=== PATIENT | female | born 1990 | race Caucasian/White ===

== ENCOUNTER 2021-05-08 16:38 | Observation (INO) | payer SELFPAY ==
[2021-05-08] MEDS ORDERED: HYDROmorphone 0.5 MG/0.5 ML Syringe IVPUSH ONE ×2 (17:20→19:16)
--- NOTE | 2021-05-08 17:25 | EDM.PDOC ---
<Keyur Lee - Last Filed: 05/08/21 19:08> ED HPI GENERAL MEDICAL PROBLEM - General Chief Complaint: Abdominal Pain Stated Complaint: [facility] Time Seen by Provider: 05/08/21 17:05 Source of Information: Reports: Patient, EMS, Family History Limitations: Reports: No Limitations - History of Present Illness INITIAL COMMENTS - FREE TEXT/NARRATIVE: 31-year-old female usually healthy, has had some intermittent right-sided pain over the past several months but today it started fairly suddenly and intensely at around 11:00 this morning. It has waxed and waned all day but not gone away and this afternoon it became very intense with nausea and vomiting. Her was bringing her in to be seen and it got so bad they had to call the ambulance to finish the trip. EMS started IV, gave her IV fentanyl and Zofran and she feels somewhat better but it starting to build up again. She points to her right lateral side and right lower chest and abdomen as the source of the pain. She is appearing vacation and for the past 3 days before the pain started she has been fine. No abdominal surgical history. She just finished her menstrual cycle. Onset: Sudden Duration: Hour(s): (5 hours) Location: Reports: Chest, Abdomen Improves with: Reports: Medication (EMS medications did help) Associated Symptoms: Reports: Malaise, Nausea/Vomiting. 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: Psychiatric History: Reports: Anxiety, Panic Attack Endocrine/Metabolic History: Reports: Obesity/BMI 30+ - Past Surgical History Head Surgeries/Procedures: Reports: None HEENT Surgical History: Reports: None Endocrine Surgical History: Reports: None Dermatological Surgical History: Reports: None Social & Family History - Tobacco Use Tobacco Use Status *Q: Never Tobacco User Second Hand Smoke Exposure: No - Caffeine Use Caffeine Use: Reports: Coffee, Soda - Recreational Drug Use Recreational Drug Use: No ED ROS GENERAL - Review of Systems Review Of Systems: See Below Constitutional: Reports: Malaise. Denies: Fever, Chills HEENT: Reports: Other (No jaundice). Denies: Vision Change Respiratory: Reports: No Symptoms. Denies: Shortness of Breath Cardiovascular: Reports: Chest Pain (Pain is localized to the lower right anterior and lateral chest) GI/Abdominal: Reports: Abdominal Pain (Right upper quadrant), Nausea, Vomiting : Reports: Flank Pain (Right side) Musculoskeletal: Reports: No Symptoms Skin: Reports: No Symptoms Neurological: Reports: No Symptoms Psychiatric: Reports: No Symptoms ED EXAM, GI/ABD - Physical Exam Exam: See Below Exam Limited By: No Limitations General Appearance: Alert, Mild Distress (Still fairly uncomfortable despite EMS medications but much improved) Eyes: Bilateral: Normal Appearance Head: Atraumatic Respiratory/Chest: No Respiratory Distress Cardiovascular: Regular Rate, Rhythm, Other (She thinks her chest wall is tender right lateral and anterior) GI/Abdominal Exam: Normal Bowel Sounds, Soft, Tender (Just minimal discomfort to palpation in the right abdomen, no focal guarding or rebound) Neurological: Alert, Oriented Psychiatric: Normal Affect, Normal Mood Skin Exam: Warm, Dry. No: Rash (No rash over the painful area) Course - Re-Assessments/Exams Free Text/Narrative Re-Assessment/Exam: 05/08/21 17:24 This presents more like a kidney stone and gallbladder disease, but his CMP CBC and lipase were ordered. She was given additional 0.5 mg of IV Dilaudid and a CT of the abdomen and pelvis will be obtained without contrast. 05/08/21 19:07 Lipase was normal, AST and ALT was slightly elevated but alk phos was normal. White count was elevated at 14,300. 05/08/21 19:08 Impression: 1. Gallbladder distention without appreciable wall thickening or surrounding edema. Consider follow-up ultrasound. 2. Small hiatal hernia. 3. Normal appendix. No nephrolithiasis. Ultrasound will be ordered and care will be turned over to Dr. Powers pending results. Departure - Departure Disposition: Refer to Observation Clinical Impression: Abdominal pain Qualifiers: Abdominal location: right upper quadrant Qualified Code(s): R10.11 - Right upper quadrant pain - Discharge Information Referrals: PCP,None [Primary Care Provider] - Forms: ED Department Discharge Sepsis Event Note (ED) - Evaluation Sepsis Screening Result: No Definite Risk <Jamar Powers - Last Filed: 05/08/21 21:04> Course - Vital Signs Last Recorded V/S: Last Vital Signs Temp 95.4 F L 05/08/21 16:47 Pulse 79 05/08/21 20:56 Resp 12 05/08/21 16:47 BP 116/69 05/08/21 20:56 Pulse Ox 98 05/08/21 20:56 - Orders/Labs/Meds Orders: Active Orders 24 hr Category Date Time Status Abdomen Ltd [US] Stat Exams 05/08/21 19:08 Taken Abdomen Pelvis wo Cont [CT] Stat Exams 05/08/21 17:20 Taken LACTIC ACID [CHEM] Stat Lab 05/08/21 20:52 Ordered Labs: Laboratory Tests 05/08/21 05/08/21 Range/Units 17:53 17:53 WBC 14.3 H (4.5-11.0) K/uL RBC 4.44 (3.30-5.50) M/uL Hgb 13.3 (12.0-15.0) g/dL Hct 39.0 (36.0-48.0) % MCV 88 (80-98) fL MCH 30 (27-31) pg MCHC 34 (32-36) % Plt Count 282 (150-400) K/uL Neut % (Auto) 91.9 H (36-66) % Lymph % (Auto) 4.1 L (24-44) % [place] % (Auto) 3.6 (2-6) % Eos % (Auto) 0.2 L (2-4) % Baso % (Auto) 0.2 (0-1) % Sodium 142 (140-148) mmol/L Potassium 3.5 L (3.6-5.2) mmol/L Chloride 103 (100-108) mmol/L Carbon Dioxide 24 (21-32) mmol/L Anion Gap 18.5 H (5.0-14.0) mmol/L BUN 12 (7-18) mg/dL Creatinine 1.2 H (0.6-1.0) mg/dL Est Cr Clr Drug Dosing 52.74 mL/min Estimated GFR (MDRD) 52 L (>60) Glucose 132 H (74-106) mg/dL Calcium 8.6 (8.5-10.1) mg/dL Total Bilirubin 0.3 (0.2-1.0) mg/dL AST 38 H (15-37) U/L ALT 84 H (12-78) U/L Alkaline Phosphatase 50 (46-116) U/L Total Protein 7.1 (6.4-8.2) g/dL Albumin 3.5 (3.4-5.0) g/dL Globulin 3.6 H (2.3-3.5) g/dL Albumin/Globulin Ratio 1.0 L (1.2-2.2) Lipase 78 (73-393) U/L Meds: Medications Discontinued Medications Generic Name Dose Route Start Last Admin Trade Name Freq PRN Reason Stop Dose Admin Fentanyl 100 mcg 05/08/21 20:51 Fentanyl 100 Mcg/2 Ml Sdv IVPUSH 05/08/21 20:52 ONETIME ONE Hydromorphone HCl 0.5 mg 05/08/21 17:20 05/08/21 17:24 Hydromorphone 0.5 Mg/0.5 Ml Syringe IVPUSH 05/08/21 17:21 0.5 mg ONETIME ONE Administration Hydromorphone HCl 0.5 mg 05/08/21 19:16 05/08/21 19:27 Hydromorphone 0.5 Mg/0.5 Ml Syringe IVPUSH 05/08/21 19:17 0.5 mg ONETIME ONE Administration Ondansetron HCl 4 mg 05/08/21 19:22 05/08/21 19:27 Ondansetron 4 Mg/2 Ml Sdv IVPUSH 05/08/21 19:23 4 mg ONETIME ONE Administration Departure - Departure Time of Disposition: 21:04 Sepsis Event Note (ED) - Focused Exam Vital Signs: Vital Signs Temp Pulse Resp BP Pulse Ox 05/08/21 20:56 79 116/69 98 05/08/21 17:48 63 111/63 05/08/21 16:47 95.4 F L 77 12 91/50 L 100 05/08/21 16:43 95.4 F L 77 12 91/50 L 100 - My Orders Last 24 Hours: My Active Orders 05/08/21 20:52 LACTIC ACID [CHEM] Stat - Assessment/Plan Last 24 Hours: My Active Orders 05/08/21 20:52 LACTIC ACID [CHEM] Stat Plan: Took over care from Dr. Kobringer at shift change pending results of CT scan and ultrasound Assessment Acuity = acute Site and laterality = right upper quadrant abdominal pain Etiology = probable cholecystitis Manifestations = nausea and vomiting Location of injury = Home Lab values = WBC elevated 14.3 consistent leukocytosis creatinine elevated 1.2 consistent with acute renal failure stage G3 a AST elevated 38 ALT elevated 84 consistent with elevated liver enzymes CT scan shows markedly dilated gallbladder however no wall thickening no stones or sludge identified ultrasound is similar Plan Call discussed case Dr. Summers at 2100 recommended admission probable cholecystitis start antibiotics of Unasyn pain control nausea vomiting control and hydration. He will evaluate the patient in hospital This note was dictated using Seat 14A voice recognition software please call with any questions on syntax or grammar.
[2021-05-08] MEDS ORDERED: Ondansetron 4 MG/2 ML SDV IVPUSH ONE (19:22)
[2021-05-08] MEDS ORDERED: fentaNYL 100 MCG/2 ML SDV IVPUSH ONE (20:51)
[2021-05-08] MEDS ORDERED: Ondansetron 4 MG/2 ML SDV IVPUSH PRN (21:12)
[2021-05-08] MEDS ORDERED: diphenhydrAMINE 50 MG/ML SDV IVPUSH PRN (21:12)
[2021-05-08] MEDS ORDERED: Naloxone 0.4 MG/ML SDV IVPUSH PRN (21:12)
[2021-05-08] MEDS ORDERED: diphenhydrAMINE 25 MG Cap PO PRN (21:12)
[2021-05-08] MEDS ORDERED: Prochlorperazine 10 MG/2 ML SDV IVPUSH PRN (21:12)
[2021-05-08] MEDS ORDERED: HYDROmorphone/Normal Saline 15 MG/30 ML PCA IV SCH (21:15)
[2021-05-08] MEDS ORDERED: cefTRIAXone 1 GM in Sodium Chloride 0.9% 50 ML IV SCH (22:00)
[2021-05-08] MEDS: Lactated Ringers 1,000 ML IV SCH (22:22)
[2021-05-08] MEDS: metroNIDAZOLE/Normal Saline 500 MG in Premix Bag 1 BAG IV SCH (23:18)
[2021-05-08] MEDS ORDERED: Calcium Carbonate 500 MG Tab.Chew PO PRN (23:53)
[2021-05-09] MEDS: Lactated Ringers 1,000 ML IV SCH (06:10)
[2021-05-09] MEDS: metroNIDAZOLE/Normal Saline 500 MG in Premix Bag 1 BAG IV SCH ×2 (06:10→14:39)
--- NOTE | 2021-05-09 07:29 | CRLCT ---
Final Report: Indication: Right-sided abdominal pain Technique: Nonenhanced axial CT imaging through the abdomen and pelvis. Sagittal and coronal reconstructions are provided. Comparison: None Findings: There is unremarkable noncontrast appearance of the liver, spleen, pancreas, adrenal glands, and kidneys. The gallbladder is distended, but without appreciable wall thickening or surrounding edema. There is no abdominal lymphadenopathy. The abdominal aorta is normal in caliber. There is a small hiatal hernia. The intra-abdominal stomach is unremarkable. The small bowel is normal in caliber. The appendix is noninflamed. There is no colonic wall thickening or mesenteric edema. The urinary bladder, uterus, and ovaries are grossly unremarkable. There is no significant pelvic free fluid or pelvic lymphadenopathy. The osseous structures are unremarkable. The included lung bases are clear. Impression: 1. Gallbladder distention without appreciable wall thickening or surrounding edema. Consider follow-up ultrasound. 2. Small hiatal hernia. 3. Normal appendix. No nephrolithiasis. Please note that all CT scans at this facility use dose modulation, iterative reconstruction, and/or weight-based dosing when appropriate to reduce radiation dose to as low as reasonably achievable. Dictated by Pradip Terrell MD @ 05/08/2021 6:59:42 PM Signed by: Pradip Terrell MD @05/08/2021 6:59:42 PM (Electronic Signature) LILLI
--- NOTE | 2021-05-09 07:52 | PCM.CONS ---
H&P History of Present Illness - General Date of Service: 05/09/21 Admit Problem/Dx: Admission Diagnosis/Problem Admission Diagnosis/Problem Abdominal pain Source of Information: Patient History Limitations: Reports: No Limitations - History of Present Illness Initial Comments - Free Text/Narative: Kitty is a pleasant 31 year old female who had a sudden onset of acute right upper quadrant abdominal pain. A Complete work up in the ED was done and revealed acute cholecystitis. Surgery was consulted for acute cholecystitis. Kitty states with the Dilaudid [place] [facility]WER her pain is a 1 - 2 /10 pain scale. 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: Psychiatric History: Reports: Anxiety, Panic Attack Endocrine/Metabolic History: Reports: Obesity/BMI 30+ - Infectious Disease History Infectious Disease History: Reports: Chicken Pox, Influenza - Past Surgical History Head Surgeries/Procedures: Reports: None HEENT Surgical History: Reports: None Endocrine Surgical History: Reports: None Dermatological Surgical History: Reports: None Social & Family History - Family History Family Medical History: No Pertinent Family History - Tobacco Use Tobacco Use Status *Q: Never Tobacco User Second Hand Smoke Exposure: No - Caffeine Use Caffeine Use: Reports: Coffee - Alcohol Use Days Per Week of Alcohol Use: 1 Number of Drinks Per Day: 0 Total Drinks Per Week: 0 - Recreational Drug Use Recreational Drug Use: No H&P Review of Systems - Review of Systems: Review Of Systems: See Below General: Reports: Malaise, Weakness HEENT: Reports: Headaches (states from lack of caffeine and not eating) Pulmonary: Reports: No Symptoms Cardiovascular: Reports: No Symptoms Gastrointestinal: Reports: Abdominal Pain, Nausea, Vomiting Genitourinary: Reports: No Symptoms Musculoskeletal: Reports: No Symptoms Skin: Reports: No Symptoms Psychiatric: Reports: No Symptoms Neurological: Reports: No Symptoms Hematologic/Lymphatic: Reports: No Symptoms Immunologic: Reports: No Symptoms Exam - Exam Exam: See Below - Vital Signs Vital Signs: Last Vital Signs Temp 97.9 F 05/09/21 07:31 Pulse 80 05/09/21 07:31 Resp 16 05/09/21 07:31 BP 119/64 05/09/21 07:31 Pulse Ox 97 05/09/21 07:31 Weight: 187 lb 9.6 oz - Exam Quality Assessment: DVT Prophylaxis General: Alert, Oriented, Mild Distress HEENT: PERRLA Neck: Supple, Trachea Midline Lungs: Clear to Auscultation, Normal Respiratory Effort Cardiovascular: Regular Rate, Regular Rhythm GI/Abdominal Exam: Tender (right upper quadrant and pain radiates around to right upper back ) (Female) Exam: Deferred Rectal (Female) Exam: Deferred Back Exam: Normal Inspection, Full Range of Motion Extremities: Normal Inspection, Normal Range of Motion Skin: Warm, Dry, Intact Neurological: Cranial Nerves Intact Neuro Extensive - Mental Status: Alert, Oriented x3, Normal Mood/Affect, Normal Cognition, Memory Intact Neuro Extensive - Motor, Sensory, Reflexes: CN II-XII Intact Psychiatric: Alert, Normal Affect, Normal Mood - Patient Data Lab Results Last 24 hrs: Laboratory Results - last 24 hr 05/08/21 05/08/21 05/08/21 Range/Units 17:53 17:53 20:45 WBC 14.3 H (4.5-11.0) K/uL RBC 4.44 (3.30-5.50) M/uL Hgb 13.3 (12.0-15.0) g/dL Hct 39.0 (36.0-48.0) % MCV 88 (80-98) fL MCH 30 (27-31) pg MCHC 34 (32-36) % Plt Count 282 (150-400) K/uL Neut % (Auto) 91.9 H (36-66) % Lymph % (Auto) 4.1 L (24-44) % [place] % (Auto) 3.6 (2-6) % Eos % (Auto) 0.2 L (2-4) % Baso % (Auto) 0.2 (0-1) % Sodium 142 (140-148) mmol/L Potassium 3.5 L (3.6-5.2) mmol/L Chloride 103 (100-108) mmol/L Carbon Dioxide 24 (21-32) mmol/L Anion Gap 18.5 H (5.0-14.0) mmol/L BUN 12 (7-18) mg/dL Creatinine 1.2 H (0.6-1.0) mg/dL Est Cr Clr Drug Dosing 52.74 mL/min Estimated GFR (MDRD) 52 L (>60) Glucose 132 H (74-106) mg/dL Lactic Acid 2.5 H (0.4-2.0) mmol/L Calcium 8.6 (8.5-10.1) mg/dL Total Bilirubin 0.3 (0.2-1.0) mg/dL AST 38 H (15-37) U/L ALT 84 H (12-78) U/L Alkaline Phosphatase 50 (46-116) U/L Total Protein 7.1 (6.4-8.2) g/dL Albumin 3.5 (3.4-5.0) g/dL Globulin 3.6 H (2.3-3.5) g/dL Albumin/Globulin Ratio 1.0 L (1.2-2.2) Lipase 78 (73-393) U/L SARS-CoV-2 RNA (REMY) (NEGATIVE) 05/08/21 Range/Units 21:30 WBC (4.5-11.0) K/uL RBC (3.30-5.50) M/uL Hgb (12.0-15.0) g/dL Hct (36.0-48.0) % MCV (80-98) fL MCH (27-31) pg MCHC (32-36) % Plt Count (150-400) K/uL Neut % (Auto) (36-66) % Lymph % (Auto) (24-44) % Story % (Auto) (2-6) % Eos % (Auto) (2-4) % Baso % (Auto) (0-1) % Sodium (140-148) mmol/L Potassium (3.6-5.2) mmol/L Chloride (100-108) mmol/L Carbon Dioxide (21-32) mmol/L Anion Gap (5.0-14.0) mmol/L BUN (7-18) mg/dL Creatinine (0.6-1.0) mg/dL Est Cr Clr Drug Dosing mL/min Estimated GFR (MDRD) (>60) Glucose (74-106) mg/dL Lactic Acid (0.4-2.0) mmol/L Calcium (8.5-10.1) mg/dL Total Bilirubin (0.2-1.0) mg/dL AST (15-37) U/L ALT (12-78) U/L Alkaline Phosphatase (46-116) U/L Total Protein (6.4-8.2) g/dL Albumin (3.4-5.0) g/dL Globulin (2.3-3.5) g/dL Albumin/Globulin Ratio (1.2-2.2) Lipase (73-393) U/L SARS-CoV-2 RNA (REMY) Negative (NEGATIVE) Result Diagrams: 05/08/21 17:53 05/08/21 17:53 Sepsis Event Note - Evaluation Sepsis Screening Result: Possible Sepsis Risk - Focused Exam Vital Signs: Vital Signs Temp Pulse Resp BP Pulse Ox 05/09/21 07:31 97.9 F 80 16 119/64 97 05/09/21 03:00 98.8 F 88 16 139/72 99 05/09/21 01:24 96 05/08/21 23:00 97.8 F 78 16 116/66 94 L 05/08/21 22:16 97.9 F 16 131/73 100 05/08/21 22:11 97.5 F 68 16 155/75 H 98 05/08/21 21:45 72 114/61 93 L 05/08/21 20:56 79 116/69 98 Consult PN Assessment/Plan (1) Acute cholecystitis SNOMED Code(s): 51837513 Code(s): K81.0 - ACUTE CHOLECYSTITIS Current Visit: Yes Problem List Initiated/Reviewed/Updated: Yes My Orders Last 24 Hours: My Active Orders 05/09/21 07:34 Verify Patient Consent Obtain [RC] ASDIRECTED 05/09/21 11:00 Ropivacaine [Naropin 0.5%] 42 ml dexAMETHasone [Decadron] 8 mg EPINEPHrine [Adrenalin] 0.4 mg Sodium Chloride 0.9% [Normal Saline] 35.6 ml NERVRT ASDIRECTED Plan: Assessment: Acute Cholecystitis Plan: Scheduled for: Laparoscopic possible Open Cholecystectomy - Case to Follow - 05/09/2021 - general anesthesia with tap block Surgeon Ambrose Summers MD After preoperative evaluation and discussion of possible risks and complications patients wishes to proceed with surgical discomfort. Patient cleared for General Anesthesia Marva Casper 05/09/2021
[2021-05-09] MEDS ORDERED: Rocuronium 50 MG/5 ML Vial ONE (08:05)
[2021-05-09] MEDS ORDERED: Neostigmine Methylsulfate 1 MG/ML 5 ML Syringe ONE (08:05)
[2021-05-09] MEDS ORDERED: fentaNYL 250 MCG/5 ML SDV ONE (08:05)
[2021-05-09] MEDS ORDERED: Propofol 200 MG/20 ML SDV ONE (08:05)
[2021-05-09] MEDS ORDERED: Glycopyrrolate 0.2 MG/ML 5 ML MDV ONE (08:05)
[2021-05-09] MEDS ORDERED: Dexamethasone 4 MG/ML SDV ONE (08:05)
[2021-05-09] MEDS ORDERED: Ondansetron 4 MG/2 ML SDV ONE (08:05)
[2021-05-09] MEDS ORDERED: Succinylcholine 200 MG/10 ML MDV ONE (08:05)
--- NOTE | 2021-05-09 09:04 | US ---
Abdomen Ltd CLINICAL HISTORY: Abdominal pain, nausea, vomiting COMPARISON: CT abdomen 1121. TECHNIQUE: Real-time images were obtained through the right upper quadrant. FINDINGS: The liver is free of mass or biliary dilatation. Echotexture is homogeneous throughout. The gallbladder is hydropic. Wall thickness is normal at just over 2 mm. No pericholecystic fluid is identified. There is no tenderness over the gallbladder on scanning. The common bile duct measures 5 mm. The pancreas is free of masses seen. Tail is obscured. The right kidney has a normal appearance. The IVC is normal. IMPRESSION: Gallbladder is mildly hydropic but without stones, wall thickening or pericholecystic inflammatory changes. This may be anatomic variation.
[2021-05-09] MEDS ORDERED: Bupivacaine 0.5%/EPINEPHrine 1:200,000 50 ML MDV ONE (09:52)
[2021-05-09] MEDS ORDERED: Lactated Ringers 1,000 ML ONE (12:06)
[2021-05-09] MEDS ORDERED: Scopolamine 1.5 MG Transdermal Patch ONE (12:18)
[2021-05-09] MEDS ORDERED: Sodium Chloride 0.9% 10 ML ONE ×2 (12:25→12:33)
[2021-05-09] MEDS ORDERED: ePHEDrine 50 MG/ML SDV ONE (12:25)
[2021-05-09] MEDS ORDERED: Meropenem 500 MG SDV ONE (12:33)
[2021-05-09] MEDS ORDERED: Dextrose 5%-Lactated Ringers 1,000 ML IV SCH (14:15)
[2021-05-09] MEDS ORDERED: Calcium Carbonate 500 MG Tab.Chew PO PRN (14:16)
[2021-05-09] MEDS: FLUoxetine 20 MG Cap PO SCH (14:38)
[2021-05-09] MEDS ORDERED: HYDROmorphone 0.5 MG/0.5 ML Syringe IVPUSH PRN (15:00)
[2021-05-09] MEDS ORDERED: Ondansetron 4 MG/2 ML SDV IVPUSH PRN (15:00)
[2021-05-09] MEDS ORDERED: HYDROmorphone 1 MG/ML Syringe IV PRN (15:00)
[2021-05-09] MEDS: Acetaminophen 500 MG Tab PO SCH ×2 (15:50→21:12)
[2021-05-09] MEDS: oxyCODONE 5 MG Tab PO PRN ×2 (15:51→21:12)
[2021-05-09] MEDS: Meropenem 500 MG in Sodium Chloride 0.9% 50 ML IV SCH ×2 (15:55→21:12)
[2021-05-09] MEDS ORDERED: Pantoprazole 40 MG Vial IVPUSH SCH (16:00)
[2021-05-10] MEDS: oxyCODONE 5 MG Tab PO PRN ×2 (04:56→09:26)
[2021-05-10] MEDS: Meropenem 500 MG in Sodium Chloride 0.9% 50 ML IV SCH (04:56)
[2021-05-10] MEDS: Acetaminophen 500 MG Tab PO SCH ×2 (04:56→09:25)
[2021-05-10] MEDS: FLUoxetine 20 MG Cap PO SCH (09:26)
--- NOTE | 2021-05-13 12:58 | DISCH ---
FINAL DIAGNOSES: 1. Acute cholecystitis with pericholecystic abscess. 2. Incarcerated umbilical hernia. 3. History of anxiety and panic attacks. OPERATIVE PROCEDURE: Done on 05/09/2021, diagnostic laparoscopy with: 1. Cholecystectomy. 2. Drainage of pericholecystic abscess. 3. Repair of incarcerated umbilical hernia. SUMMARY: This is a 31-year-old female presenting with a picture of acute cholecystitis. After admission and IV antibiotics, the patient underwent a laparoscopic cholecystectomy. She was noted to have an inflammatory fluid collection or abscess posterior to the gallbladder which was drained concurrently and also had an umbilical hernia which was incarcerated with some preperitoneal fat which was removed concurrently. The abscess cavity did show some rare Gram-positive cocci consistent with an infectious etiology. Postoperatively, the patient has done well. At this point, she is eating well and having no significant nausea and the JOSEP drain was nonbilious. The labs looked good this morning. She will be discharged home. With the abscess showing some organisms, we will send her with 5- day course of oral Cipro. She will be following up with personal physician in 1 week for suture removal and postoperative check. /[id number]
--- NOTE | 2021-05-21 13:05 | OR ---
DATE OF PROCEDURE: 05/09/2021 SURGEON: Ambrose Summers MD PREOPERATIVE DIAGNOSIS: Acute cholecystitis. POSTOPERATIVE DIAGNOSES: 1. Acute cholecystitis with cholelithiasis. 2. Pericholecystic inflammatory fluid collection/abscess. 3. Incarcerated umbilical hernia. OPERATIVE PROCEDURES: Diagnostic laparoscopy with: 1. Cholecystectomy (46423). 2. Drainage of inflammatory fluid collection versus abscess (04704). 3. Repair of incarcerated umbilical hernia (90171). ANESTHESIA: General. TICKET COUNTER: Marva Bro PA-C INDICATIONS FOR PROCEDURE: A 31-year-old female presenting with a picture of acute cholecystitis. Plan is to proceed with a laparoscopic possible open cholecystectomy. Potential risks of the procedure including bleeding, infection, injury to underlying viscera including the common bile duct, possible problems with stones migrating in the common bile duct requiring additional procedures for correction were all reviewed, and the patient wishes to proceed. DETAILS OF PROCEDURE: The patient was taken to the operating room. After general endotracheal anesthesia was induced, the abdomen was prepped and draped. A transverse epigastric incision was made and peritoneal cavity entered under direct vision with an Optiview trocar, inflated to 15 mmHg pressure with CO2. Laparoscope was reinserted. No underlying trocar insertion site injuries were seen. Following this, the patient was noted to have an umbilical hernia which added some incarcerated preperitoneal fat on tip of the falciform ligament. A transverse subumbilical incision was made and the 12 mm trocar was then placed through the center of the hernia, thus reducing the contents. A 5 mm trocar was then placed in the right subcostal area. The gallbladder was retracted anteriorly. There was a marked inflammatory fluid collection versus abscess posterior to the gallbladder with that area being reddened and involving peritonitis. The fluid collection was evacuated and cultures were obtained. Following this, the gallbladder which was acutely inflamed was retracted anteriorly and laterally, and dissection began around the gallbladder neck and continued around the gallbladder neck and cystic duct junction. Once that area was well delineated along with adjacent cystic artery, the cystic duct gallbladder junction was divided with a BAY mari load. The artery was then divided with 3 clips and then divided with Harmonic Scalpel. The gallbladder was then dissected off the gallbladder bed and delivered through the epigastric trocar site. This needed to be enlarged somewhat both by blunt dissection and increased the incision sites in order to accommodate the gallbladder stone to partially extract it by means of a forceps. The area of dissection was inspected. A Som-Orozco drain was taken out through the right lateral trocar site and placed into the area of the gallbladder bed. Camera port was then brought back up to the epigastric site and the umbilical trocar was then removed. The hernia was then repaired with series of 0 Vicryl sutures placed in a transverse orientation. Once these were placed by means of laparoscopic suture passer, the remaining trocars were removed and the peritoneal cavity deflated. The fascia at the epigastric site was closed with 0 Vicryl stitch as well and the umbilical hernia repaired and sutures were tied. Sutures were then also placed at the skin level with 4-0 Vicryl stitch. Prior to closure, bilateral transversus abdominis plane blocks were placed and incisions were anesthetized with 1% lidocaine mixed with Marcaine and the patient was taken to the recovery room in satisfactory condition. Physician store assistant, Marva Bro, played an essential role in assisting in this case, helping to position the patient, retract structures as needed, as well as suturing and cutting sutures when indicated. Her presence improved patient's safety and improved operative time. Ambrose Summers MD /[id number]
== END 2021-05-10 11:00 | disposition home or self-care (01) ==
LOC: JP.ED 16:38 → JP.MS 21:08
PROVIDERS: ADMIT Surgery; ATTEND Surgery
DX: K80.12 Calculus of gallbladder with acute and chronic cholecystitis without obstruction (principal); K42.0 Umbilical hernia with obstruction, without gangrene; K65.1 Peritoneal abscess; K44.9 Diaphragmatic hernia without obstruction or gangrene; E66.9 Obesity, unspecified; Z68.34 Body mass index [BMI] 34.0-34.9, adult; Z01.812 Encounter for preprocedural laboratory examination; Z20.822 Contact with and (suspected) exposure to COVID-19; Z88.0 Allergy status to penicillin; Z79.899 Other long term (current) drug therapy
CPT/HCPCS: 36415; 47562; 49653; 74176; 76705; 80053; 82247; 83605; 83690; 84075; 85025; 85027; 87070; 87075; 87205; 87635; 88304; 94762; 96365; 96367; 96375; 96376; 99285; A9270; C9113; G0378; J0171; J0330; J0696; J1100; J1170; J2185; J2405; J2704; J2710; J2795; J3010; J3490; J7120; J7121; 96374; U0002